=== PATIENT | male | born 1955 | race Caucasian/White ===

== ENCOUNTER 2019-10-12 08:37 | Outpatient (RCR) | payer BC, SELFPAY | END 2019-10-28 23:59 | disposition home or self-care (01) | LOC: SPT 08:37 | PROVIDERS: PCP Physician Assistant Medical; Referring Provider Physician Assistant Surgical; Visit Provider Physician Assistant Surgical | DX: Z47.1 Aftercare following joint replacement surgery (principal); Z96.652 Presence of left artificial knee joint | CPT/HCPCS: 97110; 97116; 97161 ==

== ENCOUNTER 2019-10-29 06:00 | Outpatient (RCR) | payer BC, SELFPAY | END 2019-11-27 23:59 | disposition home or self-care (01) | LOC: SPT 06:00 | PROVIDERS: PCP Physician Assistant Medical; Visit Provider Physician Assistant Surgical | DX: Z47.1 Aftercare following joint replacement surgery (principal); Z96.652 Presence of left artificial knee joint | CPT/HCPCS: 97110; 97150; 97164 ==

== ENCOUNTER 2020-05-20 06:00 | Outpatient (RCR) | payer BC, SELFPAY | END 2020-05-29 23:59 | disposition home or self-care (01) | LOC: WPT 06:00 | PROVIDERS: PCP Physician Assistant Medical; Referring Provider Physician Assistant Surgical; Visit Provider Physician Assistant Surgical | DX: Z47.1 Aftercare following joint replacement surgery (principal); Z96.651 Presence of right artificial knee joint | CPT/HCPCS: 97110; 97112; 97161 ==

== ENCOUNTER 2020-05-30 06:00 | Outpatient (RCR) | payer BC, SELFPAY | END 2020-06-29 23:59 | disposition home or self-care (01) | LOC: WPT 06:00 | PROVIDERS: PCP Physician Assistant Medical; Referring Provider Physician Assistant Surgical; Visit Provider Physician Assistant Surgical | DX: Z47.1 Aftercare following joint replacement surgery (principal); Z96.651 Presence of right artificial knee joint | CPT/HCPCS: 97110; 97112; 97140 ==

== ENCOUNTER 2020-06-30 06:00 | Outpatient (RCR) | payer BC, SELFPAY | END 2020-07-27 23:59 | disposition home or self-care (01) | LOC: WPT 06:00 | PROVIDERS: PCP Physician Assistant Medical; Referring Provider Physician Assistant Surgical; Visit Provider Physician Assistant Surgical | DX: Z47.89 Encounter for other orthopedic aftercare (principal); Z96.651 Presence of right artificial knee joint | CPT/HCPCS: 97110 ==

== ENCOUNTER 2021-03-30 12:01 | Emergency (ER) | payer BC, SELFPAY ==
--- NOTE | 2021-03-30 12:28 | ED_ITS ---
HPI - Chest Pain General: Chief Complaint: Chest Pain Stated Complaint: CP: SENT BY [facility] Time Seen by Provider: 03/30/21 12:28 History of Present Illness: HPI narrative: Mr. Reese is a 65-year-old gentleman without significant past medical history presents emergency department due to chest discomfort and abnormal EKG. He reports over the past few weeks he has noticed increased fullness and occasionally gas pains in the epigastric region and left upper quadrant of his abdomen. This has been intermittent in nature and mild to moderate intensity. Resolves on its own typically. However over the past day or so he has had some radiation to the chest which feels like a moderate intensity tightness and also bilateral arms. No other typical associated cardiac factors. He denies infectious symptoms. Denies episodes of similar in the past. No cardiac history. No other specific exacerbating relieving factors identified. Review of Systems General: Reports: 10 or more systems reviewed and unremarkable except in HPI and below Physical Exam Narrative: EXAM NARRATIVE: GENERAL/CONSTITUTIONAL - well-appearing. No acute distress. Eyes - PERRL, no conjunctival injection ENMT - Atraumatic external nose and ears. Moist mucous membranes NECK - supple. trachea midline CARDIOVASCULAR - regular rate and rhythm. RESPIRATORY -clear to auscultation bilaterally. No retractions or accessory muscle use. ABDOMEN/GI - Nontender/Nondistended. No tenderness to percussion or evidence of peritonitis MSK - Extremities without obvious deformity or tenderness to palpation SKIN - Warm, Dry NEURO - alert and appropriately oriented. Moves all extremities equally. Course ED course: - Patient was seen and evaluated by me at bedside - Patient placed on cardiac monitors, IV access obtained - Initial evaluation notable for no acute distress, nontoxic appearance. Some component of discomfort reproducible with physical palpation of abdomen. - Labs notable for no acute abnormality to explain patient's symptoms. Delta troponin negative. - Imaging notable for no lobar pneumonia or pneumothorax on chest x-ray. CT imaging notable for cholelithiasis without acute evidence on CT of cholecystitis. Abdominal exam not typical or concerning to the point requiring additional ultrasound imaging. - Upon serial reexamination after treatment the patient was similar - Based on patient history, evaluation, labs, and imaging as interpreted the most likely cause of the patient's condition is unclear. He does endorse chest pain and has an abnormal EKG. Patient follows right on the borderline based on story between low and moderate risk for chest pain by heart score. I discussed this with the patient at length including risk stratification and possible management options. I explained the safest option would be admission for stress testing. Patient comfortable with outpatient follow-up. All questions answered. - The results of ED evaluation were discussed with the patient including prescriptions and/or symptomatic cares (if applicable) including appropriate and responsible use, followup plan, and return precautions. The patient verbalized understanding and felt safe for discharge. - Patient discharged in satisfactory condition. Vital Signs: Vital signs: Vital Signs Pulse Rate 88 03/30/21 16:47 Respiratory Rate 15 03/30/21 16:47 Blood Pressure 134/80 03/30/21 16:47 Pulse Oximetry 98 03/30/21 16:47 MDM - Chest Pain Medical Records: Attestation: I reviewed the patient's medical records. Lab Data: Attestation: I reviewed the patient's lab results. Labs: Lab Results 03/30/21 03/30/21 03/30/21 13:53 13:53 13:53 WBC 5.0 10^3/uL 10^3/ uL (4.0-10.0) RBC 5.87 10^6/uL H 10 ^6/uL (4.1-5.3) Hgb 16.0 g/dL g/dL (11.7-16.6) Hct 48.9 % % (42.0-52.0) MCV 83.3 fl fl (80-94) MCH 27.3 pg L pg (28.0-34.0) MCHC 32.7 g/dL g/dL (30.0-36.0) RDW 13.1 % % (12.1-15.1) Plt Count 264 10^3/cmm 10^3 /cmm (130-400) MPV 9.6 fL fL (7.4-10.4) Neut % (Auto) 71.6 % % Lymph % (Auto) 16.7 % % [place] % (Auto) 10.5 % % Eos % (Auto) 0.4 % % Baso % (Auto) 0.6 % % Neut # (Auto) 3.60 10^3/uL 10^3 /uL (1.8-7.7) Lymph # (Auto) 0.8 10^3/uL 10^3/ uL (0.8-4.8) [place] # (Auto) 0.5 10^3/uL 10^3/ uL (0.2-0.9) Eos # (Auto) 0.0 10^3/uL 10^3/ uL (0.0-0.8) Baso # (Auto) 0.0 10^3/uL 10^3/ uL (0.0-0.1) Nucleated RBC % (a uto) 0 % % Nucleated RBCs # 0.0 /100WBC /100W BC Sodium 138 mmol/L mmol/L (136-145) Potassium 4.5 mmol/L mmol/L (3.5-5.1) Chloride 101 mmol/L mmol/L (98-107) Carbon Dioxide 29 mmol/L mmol/L (22-29) Anion Gap 12.5 (5-19) BUN 15 mg/dL mg/dL (8-23) Creatinine 0.8 mg/dL mg/dL (0.7-1.2) GFR Calculation 97.6 mL/min mL/mi n (90-130) Glucose 87 mg/dL mg/dL (65-115) Calculated Osmolal ity 286 mOsm/kg mOsm/ kg (285-295) Calcium 9.8 mg/dL mg/dL (8.5-10.5) Total Bilirubin 0.7 mg/dL mg/dL (0.15-1.2) AST 19 U/L U/L (0-40) ALT 23 U/L U/L (0-41) Alkaline Phosphata se 63 IU/L IU/L (40-130) Troponin T Baselin e 10 ng/L ng/L (0-15) Troponin T 120 Min [place] Delta Troponin T NT-Pro-B Natriuret Pep 5 pg/mL pg/mL (0-125) Total Protein 7.2 g/dL g/dL (6.6-8.7) Albumin 4.1 g/dL g/dL (3.5-5.2) Globulin 3.1 g/dL g/dL (1.3-4.6) Lipase 42 U/L U/L (13-60) 03/30/21 15:49 WBC RBC Hgb Hct MCV MCH MCHC RDW Plt Count MPV Neut % (Auto) Lymph % (Auto) [place] % (Auto) Eos % (Auto) Baso % (Auto) Neut # (Auto) Lymph # (Auto) [place] # (Auto) Eos # (Auto) Baso # (Auto) Nucleated RBC % (a uto) Nucleated RBCs # Sodium Potassium Chloride Carbon Dioxide Anion Gap BUN Creatinine GFR Calculation Glucose Calculated Osmolal ity Calcium Total Bilirubin AST ALT Alkaline Phosphata se Troponin T Baselin e Troponin T 120 Min [place] 10.48 ng/L ng/L (0-15) Delta Troponin T 0.48 ABS# ABS# (0-10) NT-Pro-B Natriuret Pep Total Protein Albumin Globulin Lipase EKG Data^: EKG 1: Attestation: I personally reviewed and interpreted this EKG as follows: EKG interpretation date: 03/30/21 EKG interpretation time: 12:23 Interpretation: Twelve-lead EKG shows a regular rhythm at a rate of 73. ND interval 163, QRS duration 154, QTc 429. Unclear axis. Interpretation: Sinus rhythm. Bundle branch block. No prior for comparison. EKG 2: Attestation: I personally reviewed and interpreted this EKG as follows: EKG interpretation date: 03/30/21 EKG interpretation time: 15:55 Interpretation: Twelve-lead EKG shows a regular rhythm at a rate of 70. ND interval 175, QRS duration 159, QTc 446. Unclear axis. Interpretation: Sinus rhythm. Right bundle branch block. Similar to prior. Discharge Plan Discharge Patient Disposition: Home Clinical Impression: Chest pain, Abdominal pain, Cholecystitis Condition: Stable Prescriptions: New aspirin 81 mg tablet,delayed release (DR/EC) 81 mg PO DAILY Qty: 30 RF: 0 Discharge Orders: Discharge ED (Routine); Ordered 03/30/21 Ordered By: Onofre Ruiz Referrals: Josue Daniel [Primary Care Provider] - Discharge Diet: Usual diet Discharge Activity: Resume usual activity Patient Instructions: Chest Pain (ED), Abdominal Pain (ED) Activity Restrictions/Additional Instructions: Thank you for visiting the emergency department. You were seen and evaluated for chest pain and abdominal discomfort. The exact cause of your symptoms is unclear. Based on risk factors you require evaluation including stress test and echocardiogram. Please follow-up with your primary care provider. Please return the emergency department for worsening symptoms or anything else that you are concerned about and feel needs emergency department evaluation. 

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
--- NOTE | 2021-03-30 12:37 | ECG_ITS ---
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
[2021-03-30] MEDS: aspirin 81 mg Chew Tablet 324 MG PO (13:54)
[2021-03-30 14:03] LABS: Basophils % 0.6 %; Eosinophils % 0.4 %; Hematocrit 48.9 % (42.0-52.0); Lymphocytes # 0.8 10^3/uL (0.8-4.8); Lymphocytes % 16.7 %; Mean Corpuscular HGB Conc 32.7 g/dL (30.0-36.0); Mean Corpuscular Hemoglobin 27.3 pg (28.0-34.0); Mean Corpuscular Volume 83.3 fl (80-94); Mean Platelet Volume 9.6 fL (7.4-10.4); Monocytes # 0.5 10^3/uL (0.2-0.9); Monocytes % 10.5 %; Neutrophils % 71.6 %; Nucleated Red Blood Cells % 0 %; Platelet Count 264 10^3/cmm (130-400); Red Blood Count 5.87 10^6/uL (4.1-5.3); Red Cell Distribution Width 13.1 % (12.1-15.1)
[2021-03-30 14:21] LABS: Troponin(5th) Baseline 10 ng/L (0-15)
[2021-03-30 14:30] LABS: Alanine Aminotransferase 23 U/L (0-41); Albumin Level 4.1 g/dL (3.5-5.2); Alkaline Phosphatase 63 IU/L (40-130); Anion Gap 12.5 (5-19); Aspartate Amino Transferase 19 U/L (0-40); Blood Urea Nitrogen 15 mg/dL (8-23); Calcium 9.8 mg/dL (8.5-10.5); Carbon Dioxide 29 mmol/L (22-29); Chloride 101 mmol/L (98-107); Globulin 3.1 g/dL (1.3-4.6); Glomerular Filtration Rate 97.6 mL/min (90-130); Glucose 87 mg/dL (65-115); Lipase 42 U/L (13-60); NT Pro B Type Natriuretic Pept 5 pg/mL (0-125); Osmolality Calculated 286 mOsm/kg (285-295); Potassium 4.5 mmol/L (3.5-5.1); Sodium 138 mmol/L (136-145); Total Bilirubin 0.7 mg/dL (0.15-1.2); Total Protein 7.2 g/dL (6.6-8.7)
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
--- NOTE | 2021-03-30 14:37 | ECG_ITS ---
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
[2021-03-30] MEDS: iohexol 300 mg/mL 100 mL Btl IV (15:07)
[2021-03-30 16:36] LABS: Troponin 5 2HR 10.48 ng/L (0-15); Troponin 5 2HR Delta 0.48 ABS# (0-10)
[2021-03-30 16:47] VITALS: BP 134/80; PULSE 88; RESP 15; O2SAT 98
--- NOTE | 2021-03-31 10:44 | DCPLANNER ---
manager business had message to schedule a follow up appointment for patient with [facility], and to schedule an outpatient stress test, and echo cardiogram. manager business called [facility], spoke with Donna, gave clinic patients information. A follow up appointment was scheduled for March at 12:[address] Mariscal. manager business faxed signed order to centralized scheduling to the stress test and the echo cardiogram, who will call patient with appointment information. manager business called and spoke with patients , and gave her the appointment information.
--- NOTE | 2021-05-27 08:34 | DCPLANNER ---
Patient had an outpatient stress test - this was cancelled.
--- NOTE | 2021-05-27 08:35 | DCPLANNER ---
Patient had a follow up appointment scheduled for 04.16.21 with [facility] - patient did attend appointment.
== END 2021-03-30 16:48 | disposition home or self-care (01) ==
PROVIDERS: Emergency Provider Emergency Medicine; PCP Physician Assistant Medical
DX: R10.9 Unspecified abdominal pain (principal); K81.9 Cholecystitis, unspecified; R07.9 Chest pain, unspecified
CPT/HCPCS: 36415; 71045; 74177; 80053; 83690; 83880; 84484; 85025; 93005; 99283; Q9967

== ENCOUNTER → 2024-08-27 14:46 | Outpatient (BNVA) | payer MEDICARE, SELFPAY | PROVIDERS: PCP Physician Assistant Medical; Visit Provider Nurse Practitioner Family | DX: I10 Essential (primary) hypertension (principal); Z13.6 Encounter for screening for cardiovascular disorders; Z79.899 Other long term (current) drug therapy; Z12.5 Encounter for screening for malignant neoplasm of prostate | CPT/HCPCS: 80053; 80061; 81003; 83036; 84443; 85025; G0103 ==